=== PATIENT | male | born 1945 | race Caucasian/White ===

== ENCOUNTER 2021-10-03 11:56 | Inpatient (IN) ==
[2021-10-03] MEDS ORDERED: Nitroglycerin 0.4 MG TAB.SUBL SL PRN (12:29)
[2021-10-03] MEDS: Lactobacillus 1 EACH CAP.SPRINK PO SCH (17:56)
[2021-10-03] MEDS ORDERED: *HR* Amiodarone 200 MG TABLET PO SCH (21:00)
[2021-10-03] MEDS: *HR* Amiodarone 200 MG TABLET PO SCH (22:12)
[2021-10-03] MEDS: *HR* OxyCODONE/APAP 5/325 TABLET PO PRN (22:13)
[2021-10-04] MEDS: Sennosides/Docusate Sodium TABLET PO PRN (05:39)
[2021-10-04 06:00] LABS: Basophils # 0.1 K/mcL (0.0-0.2); Basophils % 0.4 %; Eosinophils # 1.1 K/mcL (0.0-0.6); Eosinophils % 6.9 %; Hematocrit 32.9 % (37.5-50.1); Hemoglobin 10.4 g/dL (12.9-16.9); Lymphocytes # 2.5 K/mcL (0.6-4.6); Lymphocytes % 15.6 %; Mean Corpuscular HGB Conc 31.6 g/dL (31.6-35.5); Mean Corpuscular Hemoglobin 30.1 pg (28.0-33.3); Mean Corpuscular Volume 95.4 fL (83.0-100.0); Mean Platelet Volume 9.5 fL (9.4-12.4); Monocytes # 0.9 K/mcL (0.0-1.3); Monocytes % 5.7 %; Nucleated Red Blood Cells 1.2 /100 WBC (0); Red Blood Count 3.45 M/mcL (4.19-5.50); Red Cell Distribution Width 17.9 % (11.5-14.5); Segmented Neutrophils % 69.4 %; White Blood Count 15.9 K/mcL (4.3-11.1)
[2021-10-04 06:04] LABS: Platelet Count 382 K/mcL (140-400)
[2021-10-04 06:34] LABS: BUN/Creatinine Ratio 20 (6-26); Blood Urea Nitrogen 21 mg/dL (8-23); Calcium 8.1 mg/dL (8.6-10.3); Carbon Dioxide 29 mEq/L (23-29); Chloride 102 mEq/L (98-107); Glucose 90 mg/dL (70-105); Osmolality,Calculated 285 (280-300); Potassium 3.9 mEq/L (3.5-5.1); Sodium 136 mEq/L (136-145); eGFR For African Americans > 60 (> 60); eGFR For Non-African Americans > 60 (> 60)
[2021-10-04 07:09] LABS: Large Platelets Present (Not Present); Platelet Estimate Normal (Normal)
[2021-10-04] MEDS ORDERED: *HR* Amiodarone 200 MG TABLET PO SCH (09:00)
[2021-10-04] MEDS ORDERED: *HR* Enoxaparin 40 MG/0.4 ML SYRINGE SQ SCH (09:00)
[2021-10-04] MEDS: Aspirin Enteric Coated 81 MG Tablet PO SCH (09:19)
[2021-10-04] MEDS: *HR* Amiodarone 200 MG TABLET PO SCH ×2 (09:19→20:06)
[2021-10-04] MEDS: Lactobacillus 1 EACH CAP.SPRINK PO SCH ×2 (09:19→17:13)
[2021-10-04] MEDS: Multivit/Ca/Min/Fe/FA 1 TAB TABLET PO SCH (09:20)
[2021-10-04] MEDS: Loratadine 10 MG TABLET PO SCH (09:21)
[2021-10-04] MEDS: Fluticasone Propionate Nasal 50 MCG/SPRAY BOTTLE NS SCH (09:22)
[2021-10-04] MEDS: hydrOXYzine pamoate 25 MG CAPSULE PO PRN (18:26)
[2021-10-04] MEDS: *HR* OxyCODONE/APAP 5/325 TABLET PO PRN (20:09)
[2021-10-05] MEDS: Loratadine 10 MG TABLET PO SCH (09:31)
[2021-10-05] MEDS: *HR* Amiodarone 200 MG TABLET PO SCH ×2 (09:31→20:08)
[2021-10-05] MEDS: Lactobacillus 1 EACH CAP.SPRINK PO SCH ×2 (09:31→16:48)
[2021-10-05] MEDS: Aspirin Enteric Coated 81 MG Tablet PO SCH (09:31)
[2021-10-05] MEDS: Multivit/Ca/Min/Fe/FA 1 TAB TABLET PO SCH (09:31)
[2021-10-05] MEDS: Sennosides/Docusate Sodium TABLET PO PRN (09:31)
[2021-10-05] MEDS: Fluticasone Propionate Nasal 50 MCG/SPRAY BOTTLE NS SCH (09:32)
[2021-10-06] MEDS: Lactobacillus 1 EACH CAP.SPRINK PO SCH ×2 (08:14→16:22)
[2021-10-06] MEDS: Loratadine 10 MG TABLET PO SCH (08:15)
[2021-10-06] MEDS: Aspirin Enteric Coated 81 MG Tablet PO SCH (08:15)
[2021-10-06] MEDS: Multivit/Ca/Min/Fe/FA 1 TAB TABLET PO SCH (08:15)
[2021-10-06] MEDS: Fluticasone Propionate Nasal 50 MCG/SPRAY BOTTLE NS SCH (08:18)
[2021-10-06] MEDS: *HR* Amiodarone 200 MG TABLET PO SCH ×2 (08:18→20:14)
[2021-10-07] MEDS: Lactobacillus 1 EACH CAP.SPRINK PO SCH ×2 (07:47→17:13)
[2021-10-07] MEDS: Multivit/Ca/Min/Fe/FA 1 TAB TABLET PO SCH (07:48)
[2021-10-07] MEDS: Aspirin Enteric Coated 81 MG Tablet PO SCH (07:48)
[2021-10-07] MEDS: Loratadine 10 MG TABLET PO SCH (07:48)
[2021-10-07] MEDS: Fluticasone Propionate Nasal 50 MCG/SPRAY BOTTLE NS SCH (07:49)
[2021-10-07] MEDS: *HR* Amiodarone 200 MG TABLET PO SCH ×2 (07:49→20:20)
[2021-10-07 09:05] LABS: Hematocrit 39.9 % (37.5-50.1); Mean Corpuscular HGB Conc 30.3 g/dL (31.6-35.5); Mean Corpuscular Hemoglobin 30.5 pg (28.0-33.3); Mean Corpuscular Volume 100.5 fL (83.0-100.0); Mean Platelet Volume 9.9 fL (9.4-12.4); Platelet Count 414 K/mcL (140-400); Red Blood Count 3.97 M/mcL (4.19-5.50); Red Cell Distribution Width 18.9 % (11.5-14.5); White Blood Count 17.1 K/mcL (4.3-11.1)
[2021-10-07 09:06] LABS: Hemoglobin 12.1 g/dL (12.9-16.9)
[2021-10-07 09:10] LABS: BUN/Creatinine Ratio 20 (6-26); Blood Urea Nitrogen 18 mg/dL (8-23); Calcium 8.6 mg/dL (8.6-10.3); Carbon Dioxide 22 mEq/L (23-29); Chloride 102 mEq/L (98-107); Glucose 92 mg/dL (70-105); Osmolality,Calculated 280 (280-300); Potassium 4.2 mEq/L (3.5-5.1); Sodium 134 mEq/L (136-145); eGFR For African Americans > 60 (> 60); eGFR For Non-African Americans > 60 (> 60)
[2021-10-07] MEDS: *HR* OxyCODONE/APAP 5/325 TABLET PO PRN (20:29)
[2021-10-08] MEDS: Aspirin Enteric Coated 81 MG Tablet PO SCH (07:34)
[2021-10-08] MEDS: Lactobacillus 1 EACH CAP.SPRINK PO SCH ×2 (07:34→16:33)
[2021-10-08] MEDS: Multivit/Ca/Min/Fe/FA 1 TAB TABLET PO SCH (07:34)
[2021-10-08] MEDS: Loratadine 10 MG TABLET PO SCH (07:36)
[2021-10-08] MEDS: *HR* Amiodarone 200 MG TABLET PO SCH ×2 (07:36→20:18)
[2021-10-08] MEDS: Fluticasone Propionate Nasal 50 MCG/SPRAY BOTTLE NS SCH (09:27)
[2021-10-08] MEDS: Acetaminophen 325 MG TABLET PO PRN ×2 (09:33→16:35)
[2021-10-09] MEDS: Lactobacillus 1 EACH CAP.SPRINK PO SCH ×2 (08:13→16:30)
[2021-10-09] MEDS: *HR* Amiodarone 200 MG TABLET PO SCH ×2 (08:13→20:29)
[2021-10-09] MEDS: Multivit/Ca/Min/Fe/FA 1 TAB TABLET PO SCH (08:13)
[2021-10-09] MEDS: Loratadine 10 MG TABLET PO SCH (08:14)
[2021-10-09] MEDS: Aspirin Enteric Coated 81 MG Tablet PO SCH (08:14)
[2021-10-09] MEDS: Fluticasone Propionate Nasal 50 MCG/SPRAY BOTTLE NS SCH (08:15)
[2021-10-09 10:07] LABS: Bilirubin,Urine Small (Negative); Blood,Urine Negative (Negative); Clarity,Urine Clear (Clear); Color,Urine Yellow (Yellow); Glucose,Urine (UA) Normal (Normal); Ketones,Urine 15 mg/dL (Negative); Leukocyte Esterase,Urine Negative (Negative); Nitrite,Urine Negative (Negative); PH,Urine 5.5 pH Units (5.0-8.0); Protein,Urine Negative (Neg-Trace); Urobilinogen,Urine Normal (Normal)
[2021-10-10] MEDS: *HR* OxyCODONE/APAP 5/325 TABLET PO PRN (02:51)
[2021-10-10] MEDS: Multivit/Ca/Min/Fe/FA 1 TAB TABLET PO SCH (08:57)
[2021-10-10] MEDS: Loratadine 10 MG TABLET PO SCH (08:57)
[2021-10-10] MEDS: *HR* Amiodarone 200 MG TABLET PO SCH ×2 (08:57→20:24)
[2021-10-10] MEDS: Lactobacillus 1 EACH CAP.SPRINK PO SCH ×2 (08:58→17:12)
[2021-10-10] MEDS: Aspirin Enteric Coated 81 MG Tablet PO SCH (08:58)
[2021-10-10] MEDS: Fluticasone Propionate Nasal 50 MCG/SPRAY BOTTLE NS SCH (08:59)
[2021-10-10] MEDS ORDERED: E-Z-HD (BARIUM SULF) SUSPENSION PO ONE (13:07)
[2021-10-10] MEDS ORDERED: E-Z-PAQUE (BARIUM SULF) SUSP 1 BOTTLE PO ONE (13:07)
[2021-10-10] MEDS: Sennosides/Docusate Sodium TABLET PO PRN (17:13)
[2021-10-11] MEDS: *HR* Amiodarone 200 MG TABLET PO SCH (09:12)
[2021-10-11] MEDS: Lactobacillus 1 EACH CAP.SPRINK PO SCH (09:12)
[2021-10-11] MEDS: Multivit/Ca/Min/Fe/FA 1 TAB TABLET PO SCH (09:13)
[2021-10-11] MEDS: Loratadine 10 MG TABLET PO SCH (09:13)
[2021-10-11] MEDS: Aspirin Enteric Coated 81 MG Tablet PO SCH (09:13)
[2021-10-11] MEDS: Fluticasone Propionate Nasal 50 MCG/SPRAY BOTTLE NS SCH (09:27)
[2021-10-11] MEDS: hydrOXYzine pamoate 25 MG CAPSULE PO PRN (14:07)
[2021-10-11] MEDS ORDERED: cloNIDine HCL 0.1 MG TABLET PO ONE (14:38)
[2021-10-11 15:26] LABS: Basophils # 0.1 K/mcL (0.0-0.2); Basophils % 0.7 %; Eosinophils # 0.5 K/mcL (0.0-0.6); Eosinophils % 3.7 %; Hematocrit 40.5 % (37.5-50.1); Hemoglobin 12.2 g/dL (12.9-16.9); Lymphocytes # 1.8 K/mcL (0.6-4.6); Lymphocytes % 13.9 %; Mean Corpuscular HGB Conc 30.1 g/dL (31.6-35.5); Mean Corpuscular Hemoglobin 29.8 pg (28.0-33.3); Mean Corpuscular Volume 98.8 fL (83.0-100.0); Mean Platelet Volume 9.3 fL (9.4-12.4); Monocytes # 1.1 K/mcL (0.0-1.3); Monocytes % 8.7 %; Platelet Count 549 K/mcL (140-400); Red Cell Distribution Width 18.2 % (11.5-14.5); White Blood Count 12.7 K/mcL (4.3-11.1)
[2021-10-11 15:28] VITALS: BP 146/88; PULSE 89; RESP 26; TEMP 97.8; O2SAT 98
[2021-10-11 15:36] LABS: Neutrophils # 9.1 K/mcL (1.6-8.9)
[2021-10-11 15:38] LABS: BUN/Creatinine Ratio 16 (6-26); Blood Urea Nitrogen 17 mg/dL (8-23); Carbon Dioxide 24 mEq/L (23-29); Chloride 101 mEq/L (98-107); Glucose 107 mg/dL (70-105); Osmolality,Calculated 284 (280-300); Potassium 4.1 mEq/L (3.5-5.1); Sodium 136 mEq/L (136-145); eGFR For African Americans > 60 (> 60); eGFR For Non-African Americans > 60 (> 60)
[2021-10-11 15:46] LABS: Troponin I 0.07 ng/mL (< 0.04)
== END 2021-10-11 17:29 | disposition short-term general hospital (02) | DRG 949 ==
LOC: INPPIK 14:22
PROVIDERS: ADMIT Internal Medicine; ATTEND Internal Medicine